=== PATIENT | male | born 1985 | race African-American/Black ===

== ENCOUNTER 2016-05-01 17:52 | Emergency (ER) | payer SELFPAY ==
[~2016-05-01] VITALS: Ht 182.9 cm; Wt 121.0 kg
[~2016-05-01 17:52] MED LIST: ACIPHEX20 MG PO; BACTRIM,SEPT1 TABLET PO; KEFLEX500 MG PO; PEPCID20 MG PO; PREDNISONE20 MG PO; VICODIN 5-3001 EACH PO
[2016-05-01] MEDS ORDERED: ERYTHROMYC1 APPLICAT RIGHT EYE (18:46)
[2016-05-01 19:21] VITALS: BP 145/85
== END 2016-05-01 19:22 | disposition home or self-care (01) ==
LOC: EME 17:52
DX: H10.32 Unspecified acute conjunctivitis, left eye (principal); Z72.0 Tobacco use
CPT/HCPCS: 99281; 99283